=== PATIENT | female | born 1960 | race Two or more races ===

== ENCOUNTER 2016-12-27 19:02 | Emergency (ER) | payer OTHER ==
[2016-12-27 19:10] VITALS: BP 142/84
[2016-12-27] MEDS ORDERED: TETRACAINE HCL 0.5% OPH SOLN 2 ML OU ONE (19:18)
--- NOTE | 2016-12-27 19:53 | ER Document Report ---
ED Eye Complaint - General Information source: Patient TRAVEL OUTSIDE OF THE [place] IN LAST 30 DAYS: No - HPI Onset: Just prior to arrival Eye location: Right Occurred at: Home Quality of pain: Burning Exposure: Other - bug pesticide Associated symptoms: Other - see above - General Chief Complaint: Eye Problem Stated Complaint: EYE IRRITATION Time Seen by Provider: 12/27/16 19:17 Notes: Patient is a 56 year old female who presents to the ED with complaints of right eye pain secondary to accidentally spraying herself in the eye with a bug pesticide while spraying her yard. Patient states she was sprayed in her face, hair and upper right arm. Patient states she changed her top and washed her hands and face with soapy water. (CHATA ONEIL) - Related Data Allergies/Adverse Reactions: aspirin Allergy (Verified 12/27/16 19:10) Penicillins Allergy (Verified 12/27/16 19:10) Past Medical History - General Information source: Patient - Social History Smoking Status: Unknown if Ever Smoked Family History: Reviewed & Not Pertinent Renal/ Medical History: Denies: Hx Peritoneal Dialysis Review of Systems - Review of Systems Constitutional: No symptoms reported EENT: See HPI, Eye pain Cardiovascular: No symptoms reported Respiratory: No symptoms reported Gastrointestinal: No symptoms reported Genitourinary: No symptoms reported Female Genitourinary: No symptoms reported Musculoskeletal: No symptoms reported Skin: No symptoms reported Hematologic/Lymphatic: No symptoms reported Neurological/Psychological: No symptoms reported Physical Exam - Vital signs Vitals: Temp Pulse Resp BP Pulse Ox 98.4 F 81 14 142/84 H 95 12/27/16 19:05 12/27/16 19:05 12/27/16 19:05 12/27/16 19:05 12/27/16 19:05 - Notes Notes: GENERAL: Well-appearing, well nourished and in no acute distress. HEAD: Normocephalic, atraumatic. Eyes: Serge Lense irrigating right eye currently. After irrigation, patient is improved. Right eye has conjunctival injection. Cornea appears okay. ENT: Oral mucosa moist, tongue midline. NECK: Full range of motion. Supple without lymphadenopathy. LUNGS: Clear to auscultation bilaterally, no wheezes, rales, or rhonchi. No respiratory distress. HEART: Regular rate and rhythm. No murmurs, gallops, or rubs. ABDOMEN: Soft, non-tender. Non-distended. Bowel sounds present in all 4 quadrants. EXTREMITIES: Normal ROM. No Edema. NEUROLOGICAL: Alert and oriented x3. Normal speech. No focal neurological deficits. PSYCH: Normal affect, normal mood. SKIN: Warm, dry, normal turgor. No rashes or lesions noted. (CHATA ONEIL) Course - Re-evaluation Re-evalutation: 12/27/16 20:34 Patient is improved with Serge lense irrigation. Patient states most of her irritation is in the medial aspect of her right eye. (CHATA ONEIL) - Vital Signs Vital signs: Temp Pulse Resp BP Pulse Ox 98.4 F 81 14 142/84 H 95 12/27/16 19:05 12/27/16 19:05 12/27/16 19:05 12/27/16 19:05 12/27/16 19:05 Discharge - Discharge Clinical Impression: Right eye injury Qualifiers: Encounter type: initial encounter Qualified Code(s): S05.91XA - Unspecified injury of right eye and orbit, initial encounter Condition: Stable Disposition: HOME, SELF-CARE Additional Instructions: You have a chemical irritation to your right eye Put 1 drop of the ketorolac eyedrops into the eye every [address] small ribbon of the erythromycin eye ointment in the right eye every 4 hours. Follow-up with your doctor or a local eye doctor if not improving. RETURN TO THE EMERGENCY ROOM IF ANY NEW OR WORSENING SYMPTOMS. Prescriptions: Ketorolac Tromethamine [Acular] 1 drop OD Q4 PRN #5 ml PRN Reason: Referrals: CHARITY BROWN MD [Primary Care Provider] - Follow up as needed Scribe Attestation: 12/27/16 20:35 I personally performed the services described in the documentation, reviewed and edited the documentation which was dictated to the scribe in my presence, and it accurately records my words and actions. (LC LERNER) Scribe Documentation - Scribe Written by Sheliae:: alyce Martinez, 12/27/2016, 1939 acting as scribe for :: Marguerite
[2016-12-27] MEDS ORDERED: KETOROLAC TROMETHAMINE 0.45% 4 DROP/0.4 ML DROPERETTE OD ONE (20:28)
[2016-12-27] MEDS ORDERED: ERYTHROMYCIN 0.5% OPH OINTMENT 3.5 GM (ER DISP) OD PRN (20:29)
== END 2016-12-27 21:20 | disposition home or self-care (01) ==
LOC: ER 19:02
DX: S05.91XA Unspecified injury of right eye and orbit, initial encounter (principal); H57.11 Ocular pain, right eye; T54.91XA Toxic effect of unspecified corrosive substance, accidental (unintentional), initial encounter
CPT/HCPCS: 99283

== ENCOUNTER 2017-10-01 09:51 | Emergency (ER) | payer OTHER ==
--- NOTE | 2017-10-01 10:21 | ER Document Report ---
ED Medical Screen (RME) - General Chief Complaint: Allergy Symptoms Stated Complaint: POSSIBLE ALLERGIC REACTION Time Seen by Provider: 10/01/17 10:00 Mode of Arrival: Ambulatory Information source: Patient, [facility] Records Notes: 57-year-old female patient comes emergency room for itching and swelling rash. It started on 09/29/2017. There is some erythema and swelling to the left eyelids and infraorbital maxillary region. There is rash on the left neck and some on the right neck. All this area looks like poison marisol. She is now today developed individual spots on the arms that are increasing in number and if you have formed vesicles and popped by history. She was seen at an urgent care this morning and received IM Benadryl, 10 mg Decadron IM, and Zantac. She reports that the rash seems to have gotten worse since she was there an hour or so ago. She has not been outside working in the yard, but does have a dog that runs around outside, this is the most likely source for her rhus dermatitis findings. I am concerned about the lesions on the arms that look much like chickenpox. I have greeted and performed a rapid initial assessment of this patient. A comprehensive ED assessment and evaluation of the patient, analysis of test results and completion of the medical decision making process will be conducted by additional ED providers. TRAVEL OUTSIDE OF THE [place] IN LAST 30 DAYS: No - Related Data Allergies/Adverse Reactions: aspirin Allergy (Verified 10/01/17 09:58) Penicillins Allergy (Verified 10/01/17 09:58) Past Medical History - General Information source: Patient, [facility] Records - Social History Chew tobacco use (# tins/day): No Frequency of alcohol use: None Drug Abuse: None Renal/ Medical History: Denies: Hx Peritoneal Dialysis Physical Exam - Vital signs Vitals: Temp Pulse Resp BP Pulse Ox 98.1 F 62 16 135/95 H 99 10/01/17 09:56 10/01/17 09:56 10/01/17 09:56 10/01/17 09:56 10/01/17 09:56 Course - Vital Signs Vital signs: Temp Pulse Resp BP Pulse Ox 98.7 F 74 16 123/78 97 10/01/17 13:20 10/01/17 13:20 10/01/17 12:43 10/01/17 13:20 10/01/17 13:20 Doctor's Discharge - Discharge Clinical Impression: Poison marisol dermatitis Condition: Stable Disposition: HOME, SELF-CARE Additional Instructions: Poison Marisol: Poison marisol and poison oak can cause an itchy rash. This is called contact dermatitis. It's an allergy to an oil in the plant's leaves. The oil can be spread from clothing to skin, from pets to humans, or from one spot on the body to another. Washing thoroughly with soap immediately after exposure can prevent the rash. (Clothing should be washed as well.) If the oil is not removed, an itchy rash develops a few days after the exposure. Blisters may develop. Two to three weeks may be required for healing. Generally, treatment consists of: (1) an immediate thorough washing with soap to remove the oil, (2) application of a cortisone cream, and (3) antihistamines for itching. If the reaction is particularly severe, oral cortisone medicine may be required. If there are oozing areas, these can be soaked in epsom salts or Rashard's solution. Call the doctor if the rash worsens despite treatment, or if signs of infection occur such as spreading redness, red streaks, swollen glands, swelling , or fever. Your rash is most likely due to poison marisol. Watch for further development of the small lesions that are suggestive of chickenpox. If they begin developing on your back and lower extremities, you should stop taking the prednisone and come back to be rechecked. Call back this evening around 8 PM to let me know how the rash around your eyes , neck, and arms is doing and any new developments. Start the prednisone prescription tomorrow if everything is improving by later this evening or tomorrow morning. RETURN TO THE EMERGENCY ROOM IF ANY NEW OR WORSENING SYMPTOMS. Prescriptions: Prednisone [Deltasone 10 mg Tablet] 10 mg PO ASDIR PRN #21 tablet PRN Reason: Forms: Parent Work Note
--- NOTE | 2017-10-01 10:35 | ER Document Report ---
HPI - HPI Pain Level: 3 Past Medical History - Social History Smoking Status: Unknown if Ever Smoked Chew tobacco use (# tins/day): No Frequency of alcohol use: None Drug Abuse: None Family History: Reviewed & Not Pertinent Patient has suicidal ideation: No Patient has homicidal ideation: No Renal/ Medical History: Denies: Hx Peritoneal Dialysis Vertical Provider Document - INFECTION CONTROL TRAVEL OUTSIDE OF THE [place] IN LAST 30 DAYS: No Course - Vital Signs Vital signs: Temp Pulse Resp BP Pulse Ox 98.1 F 62 16 135/95 H 99 10/01/17 09:56 10/01/17 09:56 10/01/17 09:56 10/01/17 09:56 10/01/17 09:56
--- NOTE | 2017-10-01 13:19 | ER Document Report ---
ED Allergic Reaction - General Chief Complaint: Allergy Symptoms Stated Complaint: POSSIBLE ALLERGIC REACTION Time Seen by Provider: 10/01/17 10:00 Mode of Arrival: Ambulatory Information source: Patient TRAVEL OUTSIDE OF THE [place] IN LAST 30 DAYS: No - Related Data Allergies/Adverse Reactions: aspirin Allergy (Verified 10/01/17 09:58) Penicillins Allergy (Verified 10/01/17 09:58) Past Medical History - Social History Smoking Status: Unknown if Ever Smoked Chew tobacco use (# tins/day): No Frequency of alcohol use: None Drug Abuse: None Family History: Reviewed & Not Pertinent Patient has suicidal ideation: No Patient has homicidal ideation: No Renal/ Medical History: Denies: Hx Peritoneal Dialysis Physical Exam - Vital signs Vitals: Temp Pulse Resp BP Pulse Ox 98.1 F 62 16 135/95 H 99 10/01/17 09:56 10/01/17 09:56 10/01/17 09:56 10/01/17 09:56 10/01/17 09:56 Course - Vital Signs Vital signs: Temp Pulse Resp BP Pulse Ox 98.6 F 79 16 132/79 H 96 10/01/17 12:43 10/01/17 12:43 10/01/17 12:43 10/01/17 12:43 10/01/17 12:43 Discharge - Discharge Clinical Impression: Poison marisol dermatitis Condition: Stable Disposition: HOME, SELF-CARE Additional Instructions: Poison Marisol: Poison marisol and poison oak can cause an itchy rash. This is called contact dermatitis. It's an allergy to an oil in the plant's leaves. The oil can be spread from clothing to skin, from pets to humans, or from one spot on the body to another. Washing thoroughly with soap immediately after exposure can prevent the rash. (Clothing should be washed as well.) If the oil is not removed, an itchy rash develops a few days after the exposure. Blisters may develop. Two to three weeks may be required for healing. Generally, treatment consists of: (1) an immediate thorough washing with soap to remove the oil, (2) application of a cortisone cream, and (3) antihistamines for itching. If the reaction is particularly severe, oral cortisone medicine may be required. If there are oozing areas, these can be soaked in epsom salts or Rashard's solution. Call the doctor if the rash worsens despite treatment, or if signs of infection occur such as spreading redness, red streaks, swollen glands, swelling , or fever. Your rash is most likely due to poison marisol. Watch for further development of the small lesions that are suggestive of chickenpox. If they begin developing on your back and lower extremities, you should stop taking the prednisone and come back to be rechecked. Call back this evening around 8 PM to let me know how the rash around your eyes , neck, and arms is doing and any new developments. Start the prednisone prescription tomorrow if everything is improving by later this evening or tomorrow morning. RETURN TO THE EMERGENCY ROOM IF ANY NEW OR WORSENING SYMPTOMS. Prescriptions: Prednisone [Deltasone 10 mg Tablet] 10 mg PO ASDIR PRN #21 tablet PRN Reason:
[2017-10-01] MEDS ORDERED: PREDNISONE 20 MG TABLET PO ONE (13:20)
[2017-10-01 13:22] VITALS: BP 123/78
--- NOTE | 2017-10-01 19:59 | ER Document Report ---
ED Allergic Reaction - General Chief Complaint: Allergy Symptoms Stated Complaint: POSSIBLE ALLERGIC REACTION Time Seen by Provider: 10/01/17 10:00 Mode of Arrival: Ambulatory Information source: Patient, [facility] Records Notes: 57-year-old female patient comes to the emergency room for itching, swelling, and rash. It started on 09/29/2017. There is some erythema and swelling to the left eyelids and the infraorbital maxillary region. There is similar less pronounced rash on the right face. There is rash on the left neck again more prominent than what is seen on the right neck. All this has the appearance of poison marisol. Today she has developed some macular papular type spots on the arms and the volar aspects that are increasing in number and she reports once performed a vesicle earlier today and popped while she was in the shower. She was seen at an urgent care this morning and received IM Benadryl, 10 mg Decadron IM, and Zantac. She reports the rash seems to have gotten worse since she was seen there about an hour before emergency room arrival. She has not been outside working in the yard recently, but does have a dog that runs around outside. This may be a source for rhus dermatitis. I am concerned about the lesions on the arms that are suggestive of chickenpox. TRAVEL OUTSIDE OF THE [place] 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 Surgical Hx: Negative Review of Systems - Review of Systems Constitutional: No symptoms reported EENT: No symptoms reported Cardiovascular: No symptoms reported Respiratory: No symptoms reported Gastrointestinal: No symptoms reported Genitourinary: No symptoms reported Female Genitourinary: Post menopausal Musculoskeletal: No symptoms reported Skin: See HPI Hematologic/Lymphatic: No symptoms reported Neurological/Psychological: No symptoms reported Physical Exam - Vital signs Vitals: Temp Pulse Resp BP Pulse Ox 98.1 F 62 16 135/95 H 99 10/01/17 09:56 10/01/17 09:56 10/01/17 09:56 10/01/17 09:56 10/01/17 09:56 Interpretation: Normal - General General appearance: Appears well, Alert In distress: None - HEENT Head: Normocephalic, Atraumatic, Other - There is erythema to the left upper and lower eyelids and erythema to the left maxillary face. There is similar but much less pronounced findings to the right face. Eyes: Normal Pupils: PERRL Neck: Other - There is some erythema and slightly papular rash to the left neck , and similar less pronounced rash to the right neck. - Respiratory Respiratory status: No respiratory distress Breath sounds: Normal - Cardiovascular Rhythm: Regular - Abdominal Inspection: Normal - Back Back: Normal - There is no rash noted across the entire thoracic and lumbar back or flank areas - Extremities General upper extremity: Other - There are scattered single small erythematous macules with some starting to become papular. These do have the appearance of chickenpox, but could also likely be poison marisol rash. All of these lesions are located on the volar aspect of the forearms and wrists. General lower extremity: Normal inspection - Neurological Neuro grossly intact: Yes - Psychological Associated symptoms: Normal affect, Normal mood - Skin Skin Temperature: Warm Skin Moisture: Dry Skin Color: Normal Course - Re-evaluation Re-evalutation: 10/01/17 20:39 The patient was observed for about 2 hours, during this time she developed some maculopapular erythematous rash on the external region between the breasts that had not been present previously. This was on either side of the midline, and did itch somewhat. The rash on the face to me does not appear changed but there were some new lesions developing on the chin. This rash is probably poison marisol, she will be given a 60 mg dose of prednisone. She will be given a prescription to start a prednisone taper dose tomorrow if the rash is improving by tomorrow morning and she has not developed more lesions on other parts of her body that might suggest chickenpox. She will call back here this evening about 8 PM to review how her rash has changed since being discharged about 1:30 PM today. 10/01/17 20:41 The patient did call back and reported that the rash on her face had improved, the rash on the chest and forearms have not really changed. She was unaware of any additional lesions helping. She did start taking the prednisone taper dose that was due to be started tomorrow. She only took 1 of the 6 pills tonight. She was asked to review the discharge instructions and to wait and start the prednisone tomorrow only if the rash has continued to improve and there are no new lesions noted. She will also call back tomorrow afternoon to discuss how her rash is going. - Vital Signs Vital signs: Temp Pulse Resp BP Pulse Ox 98.7 F 74 16 123/78 97 10/01/17 13:20 10/01/17 13:20 10/01/17 12:43 10/01/17 13:20 10/01/17 13:20 Discharge - Discharge Clinical Impression: Poison marisol dermatitis Condition: Stable Disposition: HOME, SELF-CARE Additional Instructions: Poison Marisol: Poison marisol and poison oak can cause an itchy rash. This is called contact dermatitis. It's an allergy to an oil in the plant's leaves. The oil can be spread from clothing to skin, from pets to humans, or from one spot on the body to another. Washing thoroughly with soap immediately after exposure can prevent the rash. (Clothing should be washed as well.) If the oil is not removed, an itchy rash develops a few days after the exposure. Blisters may develop. Two to three weeks may be required for healing. Generally, treatment consists of: (1) an immediate thorough washing with soap to remove the oil, (2) application of a cortisone cream, and (3) antihistamines for itching. If the reaction is particularly severe, oral cortisone medicine may be required. If there are oozing areas, these can be soaked in epsom salts or Rashard's solution. Call the doctor if the rash worsens despite treatment, or if signs of infection occur such as spreading redness, red streaks, swollen glands, swelling , or fever. Your rash is most likely due to poison marisol. Watch for further development of the small lesions that are suggestive of chickenpox. If they begin developing on your back and lower extremities, you should stop taking the prednisone and come back to be rechecked. Call back this evening around 8 PM to let me know how the rash around your eyes , neck, and arms is doing and any new developments. Start the prednisone prescription tomorrow if everything is improving by later this evening or tomorrow morning. RETURN TO THE EMERGENCY ROOM IF ANY NEW OR WORSENING SYMPTOMS. Prescriptions: Prednisone [Deltasone 10 mg Tablet] 10 mg PO ASDIR PRN #21 tablet PRN Reason: Forms: Parent Work Note
== END 2017-10-01 13:29 | disposition home or self-care (01) ==
LOC: ER 09:51
DX: L23.7 Allergic contact dermatitis due to plants, except food (principal); R22.0 Localized swelling, mass and lump, head
CPT/HCPCS: 99283; J7512

== ENCOUNTER 2017-10-08 21:39 | Emergency (ER) | payer OTHER ==
[2017-10-08] MEDS ORDERED: EPINEPHRINE INJ/PF 1 MG/1 ML AMPULE IM ONE (23:47)
[2017-10-08] MEDS ORDERED: FAMOTIDINE INJ/PF 20 MG/2 ML SDV IV ONE (23:47)
[2017-10-08] MEDS ORDERED: METHYLPREDNISOLONE INJ 125 MG/2 ML SDV IV ONE (23:47)
--- NOTE | 2017-10-08 23:48 | ER Document Report ---
ED Allergic Reaction - General Chief Complaint: Allergic Reaction Stated Complaint: RASH Time Seen by Provider: 10/08/17 23:28 Notes: Patient is a 57-year-old female who comes emergency department for chief complaint of allergic reaction. She states that she was seen 1 week ago for similar rash, was treated with antihistamines and steroids, she finished the steroids yesterday, rash came back today, has spread over her chest, neck, and now she is getting swelling around her eyes. She denies lip swelling, tongue swelling, throat swelling, difficulty breathing or swallowing. She denies having this previously. She reports she was told she might of had poison jerson exposure or it might have been from bug bites, patient does have old blood bites , denies any new symptoms, denies being in the [place] or having contact with. She denies any cardiovascular history. She has a history of asthma. TRAVEL OUTSIDE OF THE [place] IN LAST 30 DAYS: No - Related Data Allergies/Adverse Reactions: aspirin Allergy (Verified 10/08/17 22:15) Penicillins Allergy (Verified 10/08/17 22:15) Past Medical History - General Information source: Patient - Social History Smoking Status: Never Smoker Chew tobacco use (# tins/day): No Frequency of alcohol use: None Drug Abuse: None Lives with: Family Family History: Reviewed & Not Pertinent Patient has suicidal ideation: No Patient has homicidal ideation: No Renal/ Medical History: Denies: Hx Peritoneal Dialysis Surgical Hx: Negative - Immunizations Immunizations up to date: Yes Hx Diphtheria, Pertussis, Tetanus Vaccination: Yes Review of Systems - Review of Systems Constitutional: No symptoms reported EENT: See HPI Cardiovascular: No symptoms reported Respiratory: No symptoms reported Gastrointestinal: No symptoms reported Genitourinary: No symptoms reported Female Genitourinary: No symptoms reported Musculoskeletal: No symptoms reported Skin: See HPI Hematologic/Lymphatic: No symptoms reported Neurological/Psychological: No symptoms reported Physical Exam - Vital signs Vitals: Temp Pulse Resp BP Pulse Ox 98.9 F 79 18 123/78 94 10/08/17 22:18 10/08/17 22:18 10/08/17 22:18 10/08/17 22:18 10/08/17 22:18 Interpretation: Normal - General General appearance: Appears well In distress: None - HEENT Head: Normocephalic, Atraumatic, Other - Puffy appearance of both eyelids, no swelling of the face otherwise, normal head exam otherwise Eyes: Normal Conjunctiva: Normal Extraocular movements intact: Yes Eyelashes: Normal Pupils: PERRL Sinus: Normal Nasal: Normal Mouth/Lips: Normal Mucous membranes: Normal Pharynx: Normal. No: Uvular edema, Potential airway comprom. Neck: Normal - Respiratory Respiratory status: No respiratory distress Chest status: Nontender Breath sounds: Normal Chest palpation: Normal - Cardiovascular Rhythm: Regular Heart sounds: Normal auscultation Murmur: No - Abdominal Inspection: Normal Distension: No distension Bowel sounds: Normal Tenderness: Nontender Organomegaly: No organomegaly - Back Back: Normal, Nontender - Extremities General upper extremity: Normal inspection, Nontender, Normal color, Normal ROM , Normal temperature General lower extremity: Normal inspection, Nontender, Normal color, Normal ROM , Normal temperature, Normal weight bearing. No: Boris's sign - Neurological Neuro grossly intact: Yes Cognition: Normal Orientation: AAOx4 [place] Coma Scale Eye Opening: Spontaneous [place] Coma Scale Verbal: Oriented [place] Coma Scale Motor: Obeys Commands Sur[place] Coma Scale Total: 15 Speech: Normal Motor strength normal: LUE, RUE, LLE, RLE Sensory: Normal - Psychological Associated symptoms: Normal affect, Normal mood - Skin Skin Temperature: Warm Skin Moisture: Dry Skin Color: Normal Skin irregularity: other - Urticarial rash over the neck, abdomen, chest. Over both arms there are scattered areas of excoriations and a couple of questionable areas that could either be bug bites or other rash. No vesicles, pustules, bulla. Unremarkable skin exam otherwise Course - Re-evaluation Re-evalutation: There are areas on her arm suspicious for possible poison jerson, however with her mild periorbital edema and diffuse rash over her body and neck I suspect hives. Because of her progressively worsening rash in the waiting room along with periorbital edema patient was given IM epinephrine. She already took 50 mg of Benadryl just prior to arrival. Given Pepcid and Solu-Medrol. Oropharyngeal exam unremarkable, lung exam unremarkable, no evidence of threatened airway. On reevaluation patient is much improved, rash is fading, no progression of symptoms. Patient has been reevaluated for times. Progressive improvement each time, no worsening symptoms, no new symptoms. She has been here for over 3 hours. Requesting to leave. Provided with epinephrine, discussed with patient, patient will be placed on extended prednisone taper because of possible poison jerson and her allergic reaction, discussed follow-up testing, return precautions. Patient states understanding and agreement. - Vital Signs Vital signs: Temp Pulse Resp BP Pulse Ox 98.9 F 79 15 118/63 97 10/08/17 22:18 10/08/17 22:18 10/09/17 03:01 10/09/17 03:01 10/09/17 03:01 Discharge - Discharge Clinical Impression: Hives Allergic reaction Qualifiers: Encounter type: initial encounter Qualified Code(s): T78.40XA - Allergy, unspecified, initial encounter Condition: Stable Disposition: HOME, SELF-CARE Additional Instructions: Your examination is consistent with urticaria/hives, and allergic reaction. There are some areas also suggesting poison jerson. We are putting you on an extended prednisone taper as a result. Avoid carbohydrates (will elevate your blood sugar and cause weight gain). Follow-up closely with primary care, you may need allergy testing. Recommendation is to take the Zyrtec and Pepcid daily for 1 week. In the event of facial swelling, difficulty swallowing or breathing, or any other concerning or worsening symptoms take the epinephrine pen and return. Prescriptions: Cetirizine HCl [Zyrtec 10 mg Tablet] 1 tab PO DAILY #30 tablet Epinephrine [Epipen 2-Harshal] 0.3 mg IM ASDIR PRN #1 packet PRN Reason: Famotidine [Pepcid 20 mg Tablet] 20 mg PO DAILY #30 tablet Prednisone 10 mg PO ASDIR PRN #74 tablet PRN Reason: Referrals: MARILIA GRANT MD [Primary Care Provider] - Follow up as needed
[2017-10-09] MEDS ORDERED: DIPHENHYDRAMINE HCL 50 MG/ML VIAL IV ONE (02:13)
[2017-10-09 03:44] VITALS: BP 118/63
== END 2017-10-09 03:49 | disposition home or self-care (01) ==
LOC: ER 21:39
DX: L50.0 Allergic urticaria (principal); J45.909 Unspecified asthma, uncomplicated; Z88.6 Allergy status to analgesic agent; Z88.0 Allergy status to penicillin
CPT/HCPCS: 99283; 96372; 96374; 96375; J1200; J0171; J2930; S0028

== ENCOUNTER → 2019-05-07 | Outpatient (CLI) | payer OTHER ==
--- NOTE | 2019-05-07 14:48 | WOMENS IMAGING REPORT ---
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 True lateral and cone compression views right breast. Read with the assistance of CAD: .[employer] - [employer] Version 1.3 LIMITATIONS: None. FINDINGS: RIGHT BREAST MASSES: No suspicious masses. CALCIFICATIONS: No new or suspicious calcifications. ARCHITECTURAL DISTORTION: None. ASYMMETRY: None noted. OTHER: No other significant findings. LEFT BREAST MASSES: No suspicious masses. CALCIFICATIONS: No new or suspicious calcifications. ARCHITECTURAL DISTORTION: None. ASYMMETRY: None noted. OTHER: No other significant finding. Ultrasound of the right breast in the area of concern demonstrated dense tissue. IMPRESSION: No evidence of malignancy. BREAST DENSITY: b. There are scattered areas of fibroglandular density. BIRAD: ASSESSMENT: 1 Negative. RECOMMENDATION: RECOMMENDED FOLLOW UP: Birads 1 or 2: No breast imaging finding to explain the patie nt's presenting complaint. Further intervention should be based on the degree of clinical suspicion. SPECIFIC INTERVENTION/IMAGING/CONSULTATION RECOMMENDED:No additional intervention/ imaging/consultati on needed at this time. COMMUNICATION:The imaging findings were not discussed with the patient. Her referring provider has be en notified of the findings. COMMENT: The patient has been notified of the results by letter per MQSA requirements. Additional no tification policies are in place for contacting patient with suspicious or incomplete findings. Quality ID #[id number]: The [employer] recommends an annual screening mammogram for women aged 40 years or over. This facility utilizes a reminder system to ensure that all patients receive reminder letters, and/or direct phone calls for appointments. This includes reminders for routine scr eening mammograms, diagnostic mammograms, or other Breast Imaging Interventions when appropriate. Th is patient will be placed in the appropriate reminder system. TECHNICAL DOCUMENTATION: FINDING NUMBER: (1) ASSESSMENT: (1) JOB ID: [id number] [employer]- All Rights Reserved Reading location - IP/workstation name: [email or web address]
--- NOTE | 2019-05-07 14:48 | WOMENS IMAGING REPORT ---
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 True lateral and cone compression views right breast. Read with the assistance of CAD: .[employer] Version 1.3 LIMITATIONS: None. FINDINGS: RIGHT BREAST MASSES: No suspicious masses. CALCIFICATIONS: No new or suspicious calcifications. ARCHITECTURAL DISTORTION: None. ASYMMETRY: None noted. OTHER: No other significant findings. LEFT BREAST MASSES: No suspicious masses. CALCIFICATIONS: No new or suspicious calcifications. ARCHITECTURAL DISTORTION: None. ASYMMETRY: None noted. OTHER: No other significant finding. Ultrasound of the right breast in the area of concern demonstrated dense tissue. IMPRESSION: No evidence of malignancy. BREAST DENSITY: b. There are scattered areas of fibroglandular density. BIRAD: ASSESSMENT: 1 Negative. RECOMMENDATION: RECOMMENDED FOLLOW UP: Birads 1 or 2: No breast imaging finding to explain the patie nt's presenting complaint. Further intervention should be based on the degree of clinical suspicion. SPECIFIC INTERVENTION/IMAGING/CONSULTATION RECOMMENDED:No additional intervention/ imaging/consultati on needed at this time. COMMUNICATION:The imaging findings were not discussed with the patient. Her referring provider has be en notified of the findings. COMMENT: The patient has been notified of the results by letter per MQSA requirements. Additional no tification policies are in place for contacting patient with suspicious or incomplete findings. Quality ID #[id number]: The [employer] recommends an annual screening mammogram for women aged 40 years or over. This facility utilizes a reminder system to ensure that all patients receive reminder letters, and/or direct phone calls for appointments. This includes reminders for routine scr eening mammograms, diagnostic mammograms, or other Breast Imaging Interventions when appropriate. Th is patient will be placed in the appropriate reminder system. TECHNICAL DOCUMENTATION: FINDING NUMBER: (1) ASSESSMENT: (1) JOB ID: [id number] [employer]- All Rights Reserved Reading location - IP/workstation name: [email or web address]
--- NOTE | 2019-05-07 14:54 | WOMENS IMAGING REPORT ---
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 LIMITATIONS: None. FINDINGS: LUMBAR SPINE: The bone mineral density (BMD) measured from L1-L4 in the AP projection correlates with a T-score of 1.1, which is normal as defined by the World Health Organization. BMD Change vs Baseline: N/A HIP: The bone mineral density (BMD) measured in the left hip correlates with a T-score of -0.3, which is n ormal as defined by the World Health Organization. BMD Change vs Baseline: N/A 10 year Fracture Risk Assessment: Major Osteoporotic Fracture: Not available. Hip Fracture: Not available. IMPRESSION: 1. LUMBAR SPINE WHO CLASSIFICATION: NORMAL. 2. HIP WHO CLASSIFICATION: NORMAL. OVERALL ASSESSMENT: WHO CLASSIFICATION: NORMAL. COMMENT: The World Health Organization defines low BMD as follows: T-score: Normal: Greater than -1.0 Osteopenia: Between -1.0 and -2.5 Osteoporosis: Less than -2.5 without fractures Established osteoporosis: Less than -2.5 with fractures In general, you may wish to consider: Diagnosis Treatment Follow-up DEXA Normal BMD Prevention 2-3 years Osteopenia Prevention/Therapy 1-2 years Osteoporosis Therapy Yearly TECHNICAL DOCUMENTATION: JOB ID: [id number] [employer]- All Rights Reserved Reading location - IP/workstation name: [email or web address]
== END ==
LOC: WI 05-07 13:30
PROVIDERS: ATTEND Physician Assistant
DX: D48.61 Neoplasm of uncertain behavior of right breast (principal); Z78.0 Asymptomatic menopausal state
CPT/HCPCS: 76642; 77066; 77080